=== PATIENT | female | born 1975 | race American Indian/Alaskan Native ===

== ENCOUNTER 2016-12-14 07:11 | Emergency (ER) | payer MEDICAID ==
[2016-12-14 08:06] LABS: Hematocrit 46.1 % (30.3-42.9); Hemoglobin 14.6 gm/dl (10.1-14.3); Mean Corpuscular HGB Conc 32 % (30-34); Mean Corpuscular Hemoglobin 27 pg (28-32); Mean Corpuscular Volume 85 fl (79-97); Platelet Count 213 K/mm3 (140-440); Red Blood Count 5.41 M/mm3 (3.65-5.03); Red Cell Distribution Width 15.1 % (13.2-15.2)
[2016-12-14 08:19] LABS: Anion Gap 25 mmol/L; BUN/Creatinine Ratio 21.66; Blood Urea Nitrogen 13 mg/dL (7-17); Carbon Dioxide 18 mmol/L (22-30); Chloride 97.3 mmol/L (98-107); Glucose 101 mg/dL (65-100); Sodium 136 mmol/L (137-145)
[2016-12-14 08:31] LABS: Cholesterol 189 mg/dL (50-199); HDL Cholesterol 35 mg/dL (40-59); LDL Cholesterol,Direct 121 mg/dL (50-130); Triglycerides 169 mg/dL (2-149)
[2016-12-14 09:05] LABS: Anisocytosis 1+; Basophils % (Manual) 0 % (0.0-1.8); Blastocytes % (Manual) 0 %; Diff Status Complete; Eosinophils % (Manual) 0 % (0.0-4.3)
[2016-12-14] MEDS ORDERED: TORADOL IV ONE (10:00)
[2016-12-14] MEDS ORDERED: ULTRAM PO ONE (10:00)
--- NOTE | 2016-12-14 10:35 | XRay Report ---
CHEST 2 VIEWS INDICATION: Left chest pain, shortness of breath. COMPARISON: 03/23/2015 FINDINGS: PA and lateral chest radiographs demonstrate stable cardiomediastinal silhouette/mild cardiomegaly. Poorer inspiration with increased bibasilar atelectasis. No pleural effusions or CHF. Intact bones. CONCLUSION: New bibasilar atelectasis with mild cardiomegaly again suspected, as described. Thank you for the opportunity to participate in this patient's care.
[2016-12-14] MEDS ORDERED: NACL ONE (11:55)
--- NOTE | 2016-12-14 12:51 | Cat Scan Report ---
CTA CHEST INDICATION: Elevated d-dimer/troponin, chest pain, shortness of breath. COMPARISON: 06/27/[address] images. FINDINGS: Chest CTA performed following intravenous administration of 100 cc of Omnipaque 350. Rotational MIP's also obtained. Mild to moderate cardiomegaly. Small pericardial effusion also noted with maximum thickness increased to approximately 1 cm posterior to the left ventricle, axial image 129, series 2. Borderline pulmonary arterial hypertension. No suspicious pulmonary arterial filling defects however, to the extent assessed. No aortic aneurysm or dissection. Patent central airway. Few distal right paratracheal lymph nodes may measure up to 1.2 cm as on axial image 71, series 2, nonspecific. Normal thyroid. No significant pleural effusions. Mild diffuse septal prominence/slight congestion not excluded. Bibasilar atelectasis. Nonspecific distal esophageal wall prominence/thickening, not excluded for gastroesophageal reflux and/or hiatal hernia, amongst others. No acute significant abnormality in the imaged upper abdomen. Previously seen 7 mm indeterminate hepatic dome hypodensity now not well seen. Slight mid thoracic spine degenerative spurring. CONCLUSION: 1. Increased small pericardial effusion and stable cardiomegaly, as described. 2. Mild increased bibasilar atelectasis and few other incidental findings, as above. No CT evidence of pulmonary embolism, to the extent assessed. Thank you for the opportunity to participate in this patient's care.
--- NOTE | 2016-12-14 13:46 | Emergency Department Report ---
ED Chest Pain HPI - General Chief Complaint: Chest Pain Stated Complaint: CHEST PAIN Time Seen by Provider: 12/14/16 09:42 Source: patient Mode of arrival: Ambulatory Limitations: No Limitations - History of Present Illness Initial Comments: 41 yo female with a past medical history of CHF, hypertension, and tobacco use presents to the hospital complains of chest pain 3 days. Patient states symptoms started after a forcing herself to vomit after she felt like something was stuck in her esophagus. Since then patient has had constant left upper chest pain radiating to shoulder radiate 10/10 intensity. Pain Sharp, constant, worsened with palpation and while lying on her chest wall. No alleviating factors reported. Positive associated shortness of breath due to pain. Positive dry cough without fever. Patient stopped smoking approximately 3 days ago when symptoms started because he thought symptoms might be due to tobacco use. She denies recent travel, calf tenderness, edema, history of PE/DVT. Patient does not have a primary care doctor or a camp director. Severity scale (0 -10): 8 - Related Data Home Medications Medication Instructions Recorded Confirmed Last Taken Carvedilol [Coreg] 6.25 mg PO BID 12/14/16 12/14/16 12/13/16 Lisinopril [Zestril TAB] 10 mg PO QDAY 12/14/16 12/14/16 12/13/16 Previous Rx's Medication Instructions Recorded Last Taken Type Ibuprofen [Motrin] 800 mg PO Q8HR PRN #30 tablet 12/14/16 Unknown Rx traMADol [Ultram 50 MG tab] 50 mg PO Q6HR PRN #20 tablet 12/14/16 Unknown Rx Allergies Allergy/AdvReac Type Severity Reaction Status Date / Time No Known Allergies Allergy Verified 03/14/15 08:25 Heart Score - HEART Score History: Slightly suspicious EKG: Non-specific Age: < 45 Risk factors: > 3 risk factors or hx of atherosclerotic disease Troponin: 1-3x normal limit HEART Score: 4 ED Review of Systems ROS: Stated complaint: CHEST PAIN Other details as noted in HPI Comment: All other systems reviewed and negative Other: Constitutional: No fevers chills Eyes: No eye pain visual changes ENT: No ear pain or throat pain Neck: Denies pain Respiratory: as per hpi Cardiovascular: Denies palpitations, syncope GI: Denies abdominal pain, nausea, vomiting, diarrhea : Denies dysuria Musculoskeletal: Denies back pain Skin: Denies rash, lesions, erythema Neurologic: Denies headache, numbness, weakness Psychiatric: Denies suicidal ideation, hallucinations ED Past Medical Hx - Past Medical History Hx Hypertension: Yes Hx Congestive Heart Failure: Yes - Surgical History Additional Surgical History: hysterectomy-PARTIAL - Social History Smoking Status: Former Smoker Substance Use Type: None - Medications Home Medications: Home Medications Medication Instructions Recorded Confirmed Last Taken Type Carvedilol [Coreg] 6.25 mg PO BID 12/14/16 12/14/16 12/13/16 History Ibuprofen [Motrin] 800 mg PO Q8HR PRN #30 tablet 12/14/16 Unknown Rx Lisinopril [Zestril TAB] 10 mg PO QDAY 12/14/16 12/14/16 12/13/16 History traMADol [Ultram 50 MG tab] 50 mg PO Q6HR PRN #20 tablet 12/14/16 Unknown Rx ED Physical Exam - General Limitations: No Limitations - Other Other exam information: General: No limitations, patient is alert in no acute distress Head exam: Atraumatic, normocephalic Eyes exam: Normal appearance, ENT: Moist mucous membrane, normal oropharynx Neck exam: Normal inspection, full range of motion, no meningismus nontender Respiratory exam: Clear to auscultation bilateral, no wheezes, rales, crackles Cardiovascular: Normal rate and rhythm, normal heart sounds, + reproducible chest wall tenderness left upper Abdomen: Soft, nondistended, and nontender, with normal bowel sounds, no rebound, or guarding Extremity: Full range of motion normal inspection no deformity, no calf tenderness, no edema Back: Normal Inspection, full range of motion, no tenderness Neurologic: Alert, oriented x3, cranial nerves intact, no motor or sensory deficit Psychiatric: normal affect, normal mood Skin: Warm, dry, intact ED Course Vital Signs 12/14/16 12/14/16 07:21 12:05 Temperature 99.7 F H Pulse Rate 102 H Respiratory 18 Rate Blood Pressure 140/95 O2 Sat by Pulse 98 97 Oximetry - Reevaluation(s) Reevaluation #1: 12/14/16 13:50 pain improved after tramadol and toradol - Consultations Consultation #1: 12/14/16 13:45 case d/w Harmony peterson (cardiology), states possibility of myocarditis, recommends admission for echocardiogram SATHISH score - Sathish Score Age > 65: (0) No Aspirin use within the Past 7 Days: (0) No 3 or more CAD Risk Factors: (1) Yes 2 or more Angina events in past 24 hrs: (0) No Known CAD with more than 50% Stenosis: (0) No Elevated Cardiac Markers: (0) No ST Deviation Greater than 0.5mm: (1) Yes SATHISH Score: 2 ED Medical Decision Making - Lab Data Result diagrams: 12/14/16 07:41 12/14/16 07:41 Lab Results 12/14/16 12/14/16 12/14/16 Range/Units 07:41 07:41 10:24 WBC 12.0 H (4.5-11.0) K/mm3 RBC 5.41 H (3.65-5.03) M/mm3 Hgb 14.6 H (10.1-14.3) gm/dl Hct 46.1 H (30.3-42.9) % MCV 85 (79-97) fl MCH 27 L (28-32) pg MCHC 32 (30-34) % RDW 15.1 (13.2-15.2) % Plt Count 213 (140-440) K/mm3 [place] % (Auto) Fiberglass Insulation Installer Add Manual Diff Complete Total Counted 100 Seg Neuts % (Manual) 66.0 (40.0-70.0) % Band Neutrophils % 0 % Lymphocytes % (Manual) 23.0 (13.4-35.0) % Reactive Lymphs % (Man) 0 % Monocytes % (Manual) 11.0 H (0.0-7.3) % Eosinophils % (Manual) 0 (0.0-4.3) % Basophils % (Manual) 0 (0.0-1.8) % Metamyelocytes % 0 % Myelocytes % 0 % Promyelocytes % 0 % Blast Cells % 0 % Nucleated RBC % Not Reportable Seg Neutrophils # Man 7.9 H (1.8-7.7) K/mm3 Band Neutrophils # 0.0 K/mm3 Lymphocytes # (Manual) 2.8 (1.2-5.4) K/mm3 Abs React Lymphs (Man) 0.0 K/mm3 Monocytes # (Manual) 1.3 H (0.0-0.8) K/mm3 Eosinophils # (Manual) 0.0 (0.0-0.4) K/mm3 Basophils # (Manual) 0.0 (0.0-0.1) K/mm3 Metamyelocytes # 0.0 K/mm3 Myelocytes # 0.0 K/mm3 Promyelocytes # 0.0 K/mm3 Blast Cells # 0.0 K/mm3 WBC Morphology Not Reportable Hypersegmented Neuts Not Reportable Hyposegmented Neuts Not Reportable Hypogranular Neuts Not Reportable Smudge Cells Not Reportable Toxic Granulation Not Reportable Toxic Vacuolation Not Reportable Dohle Bodies Not Reportable Pelger-Huet Anomaly Not Reportable Kobe Rods Not Reportable Platelet Estimate Appears normal Clumped Platelets Not Reportable Plt Clumps, EDTA Not Reportable Large Platelets Not Reportable Giant Platelets Not Reportable Platelet Satelliting Not Reportable Plt Morphology Comment Not Reportable RBC Morphology Not Reportable Dimorphic RBCs Not Reportable Polychromasia Not Reportable Hypochromasia Not Reportable Poikilocytosis Not Reportable Anisocytosis 1+ Microcytosis Not Reportable Macrocytosis Not Reportable Spherocytes Not Reportable Pappenheimer Bodies Not Reportable Sickle Cells Not Reportable Target Cells Not Reportable Tear Drop Cells Not Reportable Ovalocytes Not Reportable Helmet Cells Not Reportable Dennis-Hobson Bodies Not Reportable [place] Rings Not Reportable [place] Cells Not Reportable Bite Cells Not Reportable Crenated Cell Not Reportable Elliptocytes Not Reportable Acanthocytes (Spur) Not Reportable Rouleaux Not Reportable Hemoglobin C Crystals Not Reportable Schistocytes Not Reportable Malaria parasites Not Reportable Felipe Bodies Not Reportable Hem Pathologist Commnt No D-Dimer (0-234) ng/mlDDU Sodium 136 L (137-145) mmol/L Potassium 4.0 (3.6-5.0) mmol/L Chloride 97.3 L (98-107) mmol/L Carbon Dioxide 18 L (22-30) mmol/L Anion Gap 25 mmol/L BUN 13 (7-17) mg/dL Creatinine 0.6 L (0.7-1.2) mg/dL Estimated GFR > 60 ml/min BUN/Creatinine Ratio 21.66 % Glucose 101 H (65-100) mg/dL Calcium 9.0 (8.4-10.2) mg/dL Troponin T 0.058 H 0.041 H D (0.00-0.029) ng/mL Triglycerides 169 H (2-149) mg/dL Cholesterol 189 (50-199) mg/dL LDL Cholesterol Direct 121 (50-130) mg/dL HDL Cholesterol 35 L (40-59) mg/dL Cholesterol/HDL Ratio 5.40 % 12/14/16 Range/Units 10:24 WBC (4.5-11.0) K/mm3 RBC (3.65-5.03) M/mm3 Hgb (10.1-14.3) gm/dl Hct (30.3-42.9) % MCV (79-97) fl MCH (28-32) pg MCHC (30-34) % RDW (13.2-15.2) % Plt Count (140-440) K/mm3 [place] % (Auto) Add Manual Diff Total Counted Seg Neuts % (Manual) (40.0-70.0) % Band Neutrophils % % Lymphocytes % (Manual) (13.4-35.0) % Reactive Lymphs % (Man) % Monocytes % (Manual) (0.0-7.3) % Eosinophils % (Manual) (0.0-4.3) % Basophils % (Manual) (0.0-1.8) % Metamyelocytes % % Myelocytes % % Promyelocytes % % Blast Cells % % Nucleated RBC % Seg Neutrophils # Man (1.8-7.7) K/mm3 Band Neutrophils # K/mm3 Lymphocytes # (Manual) (1.2-5.4) K/mm3 Abs React Lymphs (Man) K/mm3 Monocytes # (Manual) (0.0-0.8) K/mm3 Eosinophils # (Manual) (0.0-0.4) K/mm3 Basophils # (Manual) (0.0-0.1) K/mm3 Metamyelocytes # K/mm3 Myelocytes # K/mm3 Promyelocytes # K/mm3 Blast Cells # K/mm3 WBC Morphology Hypersegmented Neuts Hyposegmented Neuts Hypogranular Neuts Smudge Cells Toxic Granulation Toxic Vacuolation Dohle Bodies Pelger-Huet Anomaly Kobe Rods Platelet Estimate Clumped Platelets Plt Clumps, EDTA Large Platelets Giant Platelets Platelet Satelliting Plt Morphology Comment RBC Morphology Dimorphic RBCs Polychromasia Hypochromasia Poikilocytosis Anisocytosis Microcytosis Macrocytosis Spherocytes Pappenheimer Bodies Sickle Cells Target Cells Tear Drop Cells Ovalocytes Helmet Cells Dennis-Hobson Bodies [place] Rings Jocelynn Cells Bite Cells Crenated Cell Elliptocytes Acanthocytes (Spur) Rouleaux Hemoglobin C Crystals Schistocytes Malaria parasites Felipe Bodies Hem Pathologist Commnt D-Dimer 628.46 H (0-234) ng/mlDDU Sodium (137-145) mmol/L Potassium (3.6-5.0) mmol/L Chloride (98-107) mmol/L Carbon Dioxide (22-30) mmol/L Anion Gap mmol/L BUN (7-17) mg/dL Creatinine (0.7-1.2) mg/dL Estimated GFR ml/min BUN/Creatinine Ratio % Glucose (65-100) mg/dL Calcium (8.4-10.2) mg/dL Troponin T (0.00-0.029) ng/mL Triglycerides (2-149) mg/dL Cholesterol (50-199) mg/dL LDL Cholesterol Direct (50-130) mg/dL HDL Cholesterol (40-59) mg/dL Cholesterol/HDL Ratio % - EKG Data -: EKG Interpreted by Me (sinus tach 102, LVH, possible ant infarct) - EKG Data When compared to previous EKG there are: changes noted (mar 2015) - Radiology Data Radiology results: report reviewed Chest x-ray: Bibasilar atelectasis with mild cardiomegaly CT angiogram chest: Increased small pericardial effusion and stable cardiomegaly , mild increased bibasilar atelectasis and a few incidental findings. - Medical Decision Making Patient has reproducible chest wall tenderness. Symptoms might be secondary to costochondritis however, patient elevated troponin with unknown cause. Possibility of viral myocarditis/viral syndrome. Cardiology recommended admission to the hospital for echocardiogram. Patient refuses admission at this time. This may risk of worsening heart function distally to significant disability and . Patient voices understanding asked repeatedly states she cannot stand hospital tonight. Patient has so erroneously documented about a size. No point I will speak to Have respiratory distress. Resting respiratory rate remained 18-20 - Differential Diagnosis costochondritis, MN, PE, unstable angina, myocarditis Critical Care Time: No Critical care attestation.: If time is entered above; I have spent that time in minutes in the direct care of this critically ill patient, excluding procedure time. ED Disposition Clinical Impression: Chest pain, Elevated troponin, HTN (hypertension), History of CHF (congestive heart failure) Disposition: OP ADMIT IP TO THIS HOSP Is pt being admited?: Yes Condition: Stable Instructions: Chest Pain (ED) Additional Instructions: You are Signing out AGAINST MEDICAL ADVICE because you have elevated cardiac enzymes. This could represent a heart attack or a heart infection. You have refuses admission for further workup and evaluation as recommended by the camp director. This can lead to significant and disability. It is very important that you follow up as soon as possible with a camp director for further evaluation. Prescriptions: Ibuprofen [Motrin] 800 mg PO Q8HR PRN #30 tablet PRN Reason: Pain traMADol [Ultram 50 MG tab] 50 mg PO Q6HR PRN #20 tablet PRN Reason: Pain Referrals: ROXANN MICHELLE MD [Staff Physician] - KEVIN (camp director) Forms: AMA Form Time of Disposition: 13:45 (Dr Greene/hosp)
--- NOTE | 2016-12-14 13:51 | Admit Criteria Form ---
Admission Criteria Documentation: CARDIOLOGY GRG Clinical Indications for Admission to Inpatient Care ([place]/check or initial the applicable condition/criteria) Hospital admission is needed for appropriate care of the patient because of ANY ONE of the following: [ ] I. Hemodynamic instability as indicated by ALL of the following (1)(2)(3) (4)(5)(6)(7)(8)(9)(10) [ ]a) Vital sign abnormality not readily corrected by appropriate treatment with 12-24 hours for ANY ONE: [ ]i) Hypotension that persists despite appropriate treatment (eg, volume repletion) [ ]ii) Tachycardiathat persists despite appropriate tx ( e.g., analgesia, fluids, sedation as indicated [ ]iii) Orthostatic vital sign changes that persists despite appropriate treatment (eg, volume repletion) [ ]b) Vital sign abnormailty that is severe indicated by ANY ONE of the following: [ ]i) Inadequate perfusion indicated by ANY ONE of the following: [ ] 1) Lactic acidosis (> 2 mmol/L) [ ] 2) New abnormal capillary refill (> 3 seconds) [ ] 3) Reduced urine output [ ] 4) New altered mental status [ ] 5) Myocardial Ischemia [ ] 6) Other metabolic acidosis (arterial pH <7.35 ) not otherwise explained. [ ]ii) Mean arterial pressure[A] less than 60 mm Hg [ ]iii) Mean arterial pressure[A] less than 70 mm Hg after 30 minutes of appropriate treatment (eg, fluid resuscitation) [ ]iv) Sustained heart rate greater than 120 beats per minute in adult or child 6 years or older[B] [ ]v) IV inotropic or vasopressor medication required to maintain adequate blood pressure or perfusion [ ] II. Severe heart failure as indicated by ANY ONE of the following(17)(18) [ ]a) Respiratory distress [ ]b) Hypotension [ ]c) Debilitating anasarca refractory to therapy (eg, tissue breakdown with infection)[C](19) [ ]d) Cardiac arrhythmias of immediate concern [ ]e) Myocardial ischemia [ ] III. Cardiac arrhythmias or findings of immediate concern indicated by ANY ONE of the following (21)(22): [ ] a) Heart rhythms that are inherently dangerous or unstable indicated by ANY ONE of the following (23)(24)(25): [ ] i) Resuscitated ventricular fibrillation or cardiac arrest [ ] ii) Ventricular escape rhythm [ ] iii) Sustained ventricular tachycardia (30 seconds or more of ventricular rhythm at greater than 100 beats per minute) [ ] iv) Nonsustained ventricular tachycardia and ANY ONE of the following: [ ] 1) Suspected cardiac ischemia as cause or consequence of ventricular tachycardia [ ] 2) Acute myocarditis [ ] b) Unstable cardiac conduction defects indicated by ANY ONE of the following(25)(26)(27) [ ] i) Type II second-degree atrioventricular block [ ]ii) Third-degree atrioventricular block [ ]iii) New-onset left bundle branch block with suspected myocardial ischemia [ ]c) Any heart rhythm and ANY ONE of the following (23)(24)(28)(29) (30) [ ] i) Continuous long-term ECG monitoring needed (e.g., initiation of drug requiring monitoring for more than 24 hours) [ ] ii) Patient has automatic implanted cardioverter defibrillator that is repeatedly firing, malfunctioning, or in need of immediate adjustment of settings beyond the scope of ambulatory or observation care [ ]d) Heart rhythms of concern due to ANY ONE of the following: [ ] i) Hypotension [ ] ii) Respiratory distress [ ] iii) Association with other significant symptoms (e.g., bradycardia with syncope or ongoing dizziness, supraventricular tachycardia with chest pain (28)(29)(31) [ ] IV. Monitoring for cardiac contusion beyond the scope of observation care needed [A](32)(33)(34) [ ] V. Surgical or device complication (e.g., valve replacement complication , ICD disfunction or pacemaker dysfunction) (49)(50)(51)(52)(53)(54) [ ] . Inpatient palliative care needed. [F](51)(52) Also use Inpatient Palliative Care Criteria [ ] VII. Nonbacterial thrombotic ([place]) endocarditis(43)(44)(55)(56)(57) [X ] VIII. Cardiology condition, symptom, or finding for which emergency and observation care has failed or are not considered appropriate. [ ] IX. Acute valvular disease requiring inpatient as indicated by ANY ONE of the following (40)(41) [ ]a) Acute valvular regurgitation (42) [ ]b) Noninfectious valvulitis (43)(44) [ ]c) Obstructive valve thrombosis (45)(46) [ ]d) Paravalvular leak(47)(48) [ ]e) Other significant valvular disorder remaining after emergency or observation level of care (as appropriate) [ ]X. Pericardial disease requiring inpatient treatment as indicated by ANY ONE of the following (35)(36)(37)(38) [ ]a) Suspected tamponade [ ]b) Hemopericardium [ ]c) Other significant pericardial disorder remaining after emergency or observation level of care (as appropriate)(39) [ ] XI. Cardiac ischemia beyond scope of emergency and observation care. [ ] XII. Cyanotic heart disease requiring inpatient care as indicated by 1 or more of the following(58)(59)(60): [ ]a) Acute onset of hypoxemia [ ]b) Exacerbation [ ] XIII. Hypertension requiring inpatient treatment as indicated by ANYONE of the following(11)(12)(13)(14): [ ]a) Severe hypertension (SBP greater than 180 mm Hg or DBP greater than 110 mm Hg, or greater than the 95th percentile for age, gender, and height in pediatric patients) that cannot be controlled (eg, to SBP less than 160 mm Hg and DBP less than 100 mm Hg) by emergency department or observation care treatment(15) [ ]b) Acute end organ damage secondary to hypertension (SBP greater than 140 mm Hg or DBP greater than 90 mm Hg) as indicated by ANYONE of the following: [ ] i) Hypertensive encephalopathy (eg, Altered mental status)(16) [ ] ii) Cerebral infarction [ ] iii) Intracranial hemorrhage [ ] iv) Myocardial ischemia or infarction [ ] v) Heart failure (eg, pulmonary edema) [ ] vi) Aortic dissection [ ] vii) Increased creatinine (new) with reduction of more than 50% in estimated glomerular filtration rate from baseline [ ] viii) Papilledema [ ] ix) Retinal hemorrhage [ ] x) Microangiopathic hemolytic anemia [ ] xi) Seizure [ ] xii) Other significant finding secondary to hypertension [ ] XIV. Complications of transplanted heart indicated by ANY ONE of the following(61): [ ]a) Acute graft rejection requiring inpatient management (eg, intravenous imunosuppression)(62)(63) [ ]b) Acute graft heart failure indicated by ANY ONE of the following(64): [ ] i) Hemodynamic instability [ ] ii) Cardiac arrhythmias of immediate concern [ ] iii) Pulmonary edema that is very severe (eg, mechanical ventilation needed, imminent or likely, need for 100% oxygen to keep oxygen saturation above 90%) [ ] iv) Pulmonary edema that is persistent as indicated by ALL of the following: [ ] 1) New need for oxygen therapy to keep oxygen saturation above 90 % (or increased FiO2 need from baseline) [ ] 2) Has not improved sufficiently with emergency department or observation care IV diuretics or other heart failure treatments[E]. [ ] iv) Altered mental status that is severe or persistent [ ] iv) Increased creatinine (new on laboratory test) with reduction of more than 50% in estimated glomerular filtration rate from baseline [ ] iv) Progressively (ongoing) rising creatinine (known from past laboratory test) with reduction of more than 25% in estimated glomerular filtration rate from baseline [ ] iv) Acute renal failure [ ] iv) Acute peripheral ischemia (eg, examination shows pulseless, cool, mottled, or cyanotic extremity) [ ] iv) Pulmonary artery catheter monitoring needed [ ] iv) Other sign or symptom of heart failure requiring inpatient treatment (ie, too severe or not responsive to outpatient and observation care treatment) [ ]c) Infection requiring inpatient management (eg, Hemodynamic instability, need for intravenous antimicrobial treatment)(66)(67)(68)(69)(70) [ ]d) Cardiac allograft vasculopathy requiring inpatient management (eg evidence of cardiacischemia)(71) [ ]e) Other complication of transplanted heart (eg, stroke, severe pulmonary hypertension, severe valvular dysfunction) requiring inpatient management(72) The original [employer] content created by [employer] has been revised. The portions of the content which have been revised are identified through the use of italic text or in bold, and [facility] has neither reviewed nor approved the modified material. All other unmodified content is copyright [employer]. Please see references footnoted in the original [employer] edition 2017
[2016-12-14 14:01] VITALS: BP 115/80
== END 2016-12-14 14:36 | disposition left against medical advice (07) ==
LOC: ED 07:11
DX: I10 Essential (primary) hypertension (principal); R07.9 Chest pain, unspecified; I50.9 Heart failure, unspecified; R79.89 Other specified abnormal findings of blood chemistry
CPT/HCPCS: 36415; 71020; 71275; 80048; 80061; 84484; 85007; 85025; 85379; 93005; 93010; 96374; 99285; J1885; Q9967

== ENCOUNTER 2017-12-01 09:58 | Emergency (ER) | payer MEDICAID ==
[2017-12-01] MEDS ORDERED: NACL 0.9% 1000 ML 1,000 ML IV ONE (11:14)
[2017-12-01 12:07] LABS: Hematocrit 43.4 % (30.3-42.9); Hemoglobin 14.1 gm/dl (10.1-14.3); Mean Corpuscular HGB Conc 32 % (30-34); Mean Corpuscular Hemoglobin 29 pg (28-32); Mean Corpuscular Volume 89 fl (79-97); Platelet Count 209 K/mm3 (140-440); Red Blood Count 4.89 M/mm3 (3.65-5.03); Red Cell Distribution Width 15.2 % (13.2-15.2)
[2017-12-01 12:37] LABS: Bilirubin,Urine NEG (Negative); Blood,Urine NEG (Negative); Color,Urine Yellow (Yellow); Mucus,Urine 2+ /HPF
[2017-12-01 12:47] LABS: Alanine Aminotransferase 13 units/L (7-56); Albumin 4.2 g/dL (3.9-5); BUN/Creatinine Ratio 15; Blood Urea Nitrogen 9 mg/dL (7-17); Hemolysis Index 4
[2017-12-01 13:07] LABS: Basophils % (Manual) 0 % (0.0-1.8); Eosinophils % (Manual) 0 % (0.0-4.3); Platelet Estimate Cons; RBC Morphology Normal; Total Cells Counted 100
--- NOTE | 2017-12-01 16:33 | Emergency Department Report ---
ED Abdominal Pain HPI - General Chief Complaint: Abdominal Pain Stated Complaint: STOMACH PAIN/URINE BURN Time Seen by Provider: 12/01/17 16:33 Source: patient Mode of arrival: Ambulatory Limitations: No Limitations - History of Present Illness Initial Comments: Patient have not taken her blood pressure medication. MD Complaint: abdominal pain -: Sudden Location: suprapubic Radiation: back Migration to: no migration Severity: moderate Severity scale (0 -10): 5 Quality: cramping, aching, dull Consistency: intermittent Improves With: nothing Worsens With: nothing Associated Symptoms: dysuria. denies: nausea, vomiting, diarrhea, fever, constipation, hematemesis, hematochezia, hematuria - Related Data Home Medications Medication Instructions Recorded Confirmed Last Taken Carvedilol [Coreg] 6.25 mg PO BID 12/14/16 12/14/16 12/13/16 Lisinopril [Zestril TAB] 10 mg PO QDAY 12/14/16 12/14/16 12/13/16 Previous Rx's Medication Instructions Recorded Last Taken Type Ibuprofen [Motrin] 800 mg PO Q8HR PRN #30 tablet 12/14/16 Unknown Rx traMADol [Ultram 50 MG tab] 50 mg PO Q6HR PRN #20 tablet 12/14/16 Unknown Rx Ibuprofen [Motrin] 800 mg PO Q8HR PRN #20 tablet 12/01/17 Unknown Rx Ondansetron [Zofran Odt] 4 mg PO Q8HR PRN #20 tab.rapdis 12/01/17 Unknown Rx cephALEXin [Keflex] 500 mg PO Q8HR #30 cap 12/01/17 Unknown Rx Allergies Allergy/AdvReac Type Severity Reaction Status Date / Time No Known Allergies Allergy Verified 03/14/15 08:25 ED Review of Systems ROS: Stated complaint: STOMACH PAIN/URINE BURN Other details as noted in HPI Comment: All other systems reviewed and negative Constitutional: denies: chills, fever Eyes: denies: eye pain, eye discharge ENT: denies: ear pain, throat pain Respiratory: denies: cough, shortness of breath Cardiovascular: denies: chest pain, palpitations Endocrine: no symptoms reported Gastrointestinal: abdominal pain. denies: nausea, vomiting, diarrhea, constipation, hematemesis, melena, hematochezia Genitourinary: urgency, dysuria, frequency Musculoskeletal: back pain Skin: denies: rash, lesions, change in color Neurological: denies: headache, weakness Psychiatric: denies: anxiety, depression Hematological/Lymphatic: denies: easy bleeding, easy bruising ED Past Medical Hx - Past Medical History Previous Medical History?: Yes Hx Hypertension: Yes Hx Congestive Heart Failure: Yes - Surgical History Past Surgical History?: Yes Additional Surgical History: hysterectomy-PARTIAL, 2002 - Social History Smoking Status: Never Smoker Substance Use Type: None - Medications Home Medications: Home Medications Medication Instructions Recorded Confirmed Last Taken Type Carvedilol [Coreg] 6.25 mg PO BID 12/14/16 12/14/16 12/13/16 History Ibuprofen [Motrin] 800 mg PO Q8HR PRN #30 tablet 12/14/16 Unknown Rx Lisinopril [Zestril TAB] 10 mg PO QDAY 12/14/16 12/14/16 12/13/16 History traMADol [Ultram 50 MG tab] 50 mg PO Q6HR PRN #20 tablet 12/14/16 Unknown Rx Ibuprofen [Motrin] 800 mg PO Q8HR PRN #20 tablet 12/01/17 Unknown Rx Ondansetron [Zofran Odt] 4 mg PO Q8HR PRN #20 tab.rapdis 12/01/17 Unknown Rx cephALEXin [Keflex] 500 mg PO Q8HR #30 cap 12/01/17 Unknown Rx ED Physical Exam - General Limitations: No Limitations General appearance: alert, in no apparent distress - Head Head exam: Present: atraumatic, normocephalic, normal inspection - Eye Eye exam: Present: normal appearance, PERRL, EOMI Pupils: Present: normal accommodation - ENT ENT exam: Present: normal exam, normal orophraynx, mucous membranes moist - Neck Neck exam: Present: normal inspection, full ROM. Absent: tenderness - Respiratory Respiratory exam: Present: normal lung sounds bilaterally. Absent: respiratory distress, wheezes, rales, rhonchi, stridor - Cardiovascular Cardiovascular Exam: Present: regular rate, normal rhythm, normal heart sounds - GI/Abdominal GI/Abdominal exam: Present: soft, tenderness (Suprapubic area), normal bowel sounds. Absent: distended, guarding, rebound, rigid - Extremities Exam Extremities exam: Present: normal inspection, full ROM, normal capillary refill. Absent: tenderness - Back Exam Back exam: Present: normal inspection, full ROM. Absent: tenderness, CVA tenderness (R), CVA tenderness (L), paraspinal tenderness, vertebral tenderness - Neurological Exam Neurological exam: Present: alert, oriented X3, CN II-XII intact - Psychiatric Psychiatric exam: Present: normal affect, normal mood - Skin Skin exam: Present: warm, dry, intact, normal color. Absent: rash ED Course Vital Signs 12/01/17 12/01/17 12/01/17 11:05 14:51 15:20 Temperature 98.5 F Pulse Rate 71 77 74 Respiratory 16 18 18 Rate Blood Pressure 189/110 Blood Pressure 176/94 164/99 [Right] O2 Sat by Pulse 98 98 97 Oximetry 12/01/17 12/01/17 12/01/17 17:30 18:16 19:41 Temperature 98.2 F Pulse Rate 63 64 74 Respiratory 18 18 18 Rate Blood Pressure Blood Pressure 192/112 172/95 155/92 [Right] O2 Sat by Pulse 98 98 99 Oximetry - Reevaluation(s) Reevaluation #1: 12/01/17 20:29 On reevaluation, patient said her abdominal pain has resolved. I palpated her abdomen and her abdomen is soft and nontender to palpation in all quadrants. Patient wants to be discharged from the ED and she doesn't want to stay in the hospital. I advised her to return to the emergency room if her abdominal pain returns. She agreed with the recommendation and said that she will come back to the emergency room if she started having abdominal pain again. Patient is currently pain-free. She will be discharged from the emergency room in a stable medical condition. ED Medical Decision Making - Lab Data Result diagrams: 12/01/17 11:40 12/01/17 11:40 - Radiology Data Radiology results: report reviewed, image reviewed - Medical Decision Making Lower abdominal pain. UTI. Hypertension. Critical care attestation.: If time is entered above; I have spent that time in minutes in the direct care of this critically ill patient, excluding procedure time. ED Disposition Clinical Impression: UTI (urinary tract infection) Qualifiers: Urinary tract infection type: acute cystitis Hematuria presence: without hematuria Qualified Code(s): N30.00 - Acute cystitis without hematuria Hypertension Qualifiers: Hypertension type: essential hypertension Qualified Code(s): I10 - Essential ( primary) hypertension Abdominal pain Qualifiers: Abdominal location: lower abdomen, unspecified Qualified Code(s): R10.30 - Lower abdominal pain, unspecified Disposition: TO HOME OR SELFCARE Is pt being admited?: No Does the pt Need Aspirin: No Condition: Stable Instructions: Urinary Tract Infection in Women (ED), Abdominal Pain (ED), Hypertension (ED) Additional Instructions: Please follow up with your primary care doctor or Dr Collins tomorrow morning. Return to the ED if your condition worsens. Prescriptions: cephALEXin [Keflex] 500 mg PO Q8HR #30 cap Ibuprofen [Motrin] 800 mg PO Q8HR PRN #20 tablet PRN Reason: pain Ondansetron [Zofran Odt] 4 mg PO Q8HR PRN #20 tab.rapdis PRN Reason: Nausea And Vomiting Referrals: PRIMARY CAREMD [Primary Care Provider] - 3-5 Days BRAYAN COLLINS MD [Staff Physician] - 3-5 Days Time of Disposition: 20:34
[2017-12-01] MEDS ORDERED: ROCEPHIN/NS 1 GM/50 ML 1 GM/50 ML BAG IV ONE (16:58)
[2017-12-01] MEDS ORDERED: CATAPRES PO ONE (17:00)
[2017-12-01] MEDS ORDERED: ZOFRAN IV ONE (17:00)
[2017-12-01] MEDS ORDERED: MORPHINE IV ONE (17:00)
[2017-12-01] MEDS ORDERED: NACL 0.9% 1000 ML 1,000 ML ONE (17:15)
--- NOTE | 2017-12-01 19:17 | Cat Scan Report ---
FINAL REPORT PROCEDURE: CT ABDOMEN PELVIS W CON TECHNIQUE: Computerized axial tomography of the abdomen and pelvis was performed after the IV injection of iodinated nonionic contrast. HISTORY: Lower abdominal Pain. COMPARISON: No prior studies are available for comparison. FINDINGS: Visualized lower thorax: Bibasilar ground-glass opacities. Liver: Normal size and attenuation. Spleen: Punctate splenic granulomas. Mild heterogeneity about superior spleen. Gallbladder and biliary system: Normal. Pancreas: Normal. Adrenals: Normal. Kidneys: Bilateral low-attenuation renal lesions, one of the largest in the left midpole measures 17 mm. Mild scarring about the left upper/mid pole. GI tract: Distension of the proximal duodenum. Scattered nondistended fluid-filled loops of ileum without transition point. The appendix measures 6-7 mm, air-filled and without surrounding inflammation. Stool throughout the colon. Colonic diverticula, some of them appear enlarged, the largest measuring 17 mm. Lymph nodes and mesentery: Scattered mildly enlarged lymph nodes, most evident in the right mid abdomen. Largest one on the right about common iliac artery measures 17 by 12 mm (image 105 series 2, image 60 series 602.. Subcentimeter retroperitoneal lymph nodes. Vasculature: Mild atherosclerosis. Bladder: Normal. Reproductive organs: Normal. Peritoneum: No free fluid. Musculoskeletal structures: L4-5 disc bulge with vacuum discs change in disc space narrowing. Slight L5-S1 disc bulge. Tiny multilevel osteophytes.. Other: None. IMPRESSION: Bibasilar ground-glass opacities likely atelectasis. Mild heterogeneity about the superior spleen. Could represent volume averaging. Also consider process such as splenic infarction, or even posttraumatic change. Consider correlation with clinical history. Low-attenuation renal lesions, likely cysts. Distension of the duodenum and scattered nondistended fluid-filled loops of ileum felt to more likely represent ileus rather than obstruction. Colonic diverticulosis. Appendix measures 6-7 mm top-normal. Air-filled without surrounding inflammation. There is overlap in the imaging appearance of normal and abnormal appendix. Recommend clinical correlation and further evaluation including CT scan with oral contrast if there is concern for appendiceal pathology such as subtle appendicitis. Scattered mesenteric and retroperitoneal lymph nodes, mildly enlarged most evident in the right mid abdomen. Consider could be reactive, consider attention on followup exam if there is concern for underlying myeloproliferative process.
[2017-12-01 19:42] VITALS: BP 155/92
== END 2017-12-01 20:55 | disposition home or self-care (01) ==
LOC: ED 09:58
DX: N30.00 Acute cystitis without hematuria (principal); I11.0 Hypertensive heart disease with heart failure; I50.9 Heart failure, unspecified; Z90.710 Acquired absence of both cervix and uterus
CPT/HCPCS: 36415; 74177; 80053; 81001; 85007; 85025; 87086; 96365; 96375; 99285; J0696; J2270; J2405; J7030; Q9967

== ENCOUNTER 2018-04-21 02:18 | Emergency (ER) | payer MEDICAID ==
[2018-04-21] MEDS ORDERED: CATAPRES PO ONE (02:40)
--- NOTE | 2018-04-21 03:02 | XRay Report ---
FINAL REPORT PROCEDURE: XR CHEST ROUTINE 2V TECHNIQUE: PA and lateral chest radiographs were obtained. CPT 78861 HISTORY: sob COMPARISON: No prior studies are available for comparison. FINDINGS: Heart: Normal. Mediastinum/Vessels: Normal. Lungs/Pleural space: Normal. Bony thorax: No acute osseous abnormality. Other: IMPRESSION: There is no evidence of an acute cardiopulmonary process.
[2018-04-21 03:04] LABS: Basophils # (Auto) 0.1 K/mm3 (0.0-0.1); Basophils % (Auto) 0.8 % (0.0-1.8); Eosinophils # (Auto) 0.4 K/mm3 (0.0-0.4); Eosinophils % (Auto) 4.4 % (0.0-4.3); Hematocrit 41.9 % (30.3-42.9); Hemoglobin 13.8 gm/dl (10.1-14.3); Lymphocytes # (Auto) 4.1 K/mm3 (1.2-5.4); Lymphocytes % (Auto) 46.3 % (13.4-35.0); Mean Corpuscular HGB Conc 33 % (30-34); Mean Corpuscular Volume 88 fl (79-97); Monocytes # (Auto) 0.7 K/mm3 (0.0-0.8); Monocytes % (Auto) 7.8 % (0.0-7.3); Platelet Count 201 K/mm3 (140-440); Red Blood Count 4.75 M/mm3 (3.65-5.03); Red Cell Distribution Width 14.8 % (13.2-15.2)
[2018-04-21 03:13] LABS: BUN/Creatinine Ratio 21; Blood Urea Nitrogen 17 mg/dL (7-17); Calcium 8.7 mg/dL (8.4-10.2); Hemolysis Index 31
[2018-04-21] MEDS ORDERED: NORVASC PO ONE (06:49)
--- NOTE | 2018-04-21 07:03 | Emergency Department Report ---
ED General Adult HPI - General Chief complaint: Dyspnea/Respdistress Stated complaint: SUDHA Time Seen by Provider: 04/21/18 06:16 Source: patient Mode of arrival: Ambulatory Limitations: No Limitations - History of Present Illness Initial comments: 44 year old female states that she has periodic shortness of breath in the middle of the night. This has been going on for years. She states that she had a "recall of her blood pressure medicine"which starts with a "V". I could not recognize her name. Patient denied that it was Valsartan. She is still taking hydrochlorothiazide which she says is a heart medication. Later she requested pain pills for periodic headaches. She is not complaining of headaches now. She states that she does have a primary care physician but she has not seen them for years. She denies any mental health disorder or anxiety. She is not coughing. She does not complain of chest pain pressure or tightness. She denies leg pain or swelling. -: month(s), year(s) Location: head Improves with: none Worsens with: none Associated Symptoms: shortness of breath (no current shortness of breath resting comfortably supine) Treatments Prior to Arrival: none - Related Data Home Medications Medication Instructions Recorded Confirmed Last Taken Carvedilol [Coreg] 6.25 mg PO BID 12/14/16 12/14/16 12/13/16 Lisinopril [Zestril TAB] 10 mg PO QDAY 12/14/16 12/14/16 12/13/16 Previous Rx's Medication Instructions Recorded Last Taken Type Ibuprofen [Motrin] 800 mg PO Q8HR PRN #30 tablet 12/14/16 Unknown Rx Ibuprofen [Motrin] 800 mg PO Q8HR PRN #20 tablet 12/01/17 Unknown Rx Ondansetron [Zofran Odt] 4 mg PO Q8HR PRN #20 tab.rapdis 12/01/17 Unknown Rx cephALEXin [Keflex] 500 mg PO Q8HR #30 cap 12/01/17 Unknown Rx amLODIPine [Norvasc] 5 mg PO ONCE #30 tablet 04/21/18 Unknown Rx metFORMIN [Glucophage] 500 mg PO BID #60 tablet 04/21/18 Unknown Rx traMADol [Ultram 50 MG tab] 50 mg PO Q6HR PRN #10 tablet 04/21/18 Unknown Rx Allergies Allergy/AdvReac Type Severity Reaction Status Date / Time No Known Allergies Allergy Verified 03/14/15 08:25 ED Review of Systems ROS: Stated complaint: SUDHA Other details as noted in HPI Constitutional: denies: chills, fever Eyes: denies: eye pain, eye discharge, vision change ENT: denies: ear pain, throat pain Respiratory: shortness of breath, SOB at rest (states nocturnally only). denies: cough, wheezing Cardiovascular: denies: chest pain, palpitations Endocrine: no symptoms reported Gastrointestinal: denies: abdominal pain, nausea, diarrhea Genitourinary: denies: urgency, dysuria, discharge Musculoskeletal: denies: back pain, joint swelling, arthralgia Skin: denies: rash, lesions Neurological: headache (intermittent not current). denies: weakness, paresthesias Psychiatric: denies: anxiety, depression Hematological/Lymphatic: denies: easy bleeding, easy bruising ED Past Medical Hx - Past Medical History Previous Medical History?: Yes Hx Hypertension: Yes Hx Congestive Heart Failure: Yes - Surgical History Past Surgical History?: Yes Additional Surgical History: hysterectomy-PARTIAL, 2002 - Social History Smoking Status: Never Smoker Substance Use Type: None - Medications Home Medications: Home Medications Medication Instructions Recorded Confirmed Last Taken Type Carvedilol [Coreg] 6.25 mg PO BID 12/14/16 12/14/16 12/13/16 History Ibuprofen [Motrin] 800 mg PO Q8HR PRN #30 tablet 12/14/16 Unknown Rx Lisinopril [Zestril TAB] 10 mg PO QDAY 12/14/16 12/14/16 12/13/16 History Ibuprofen [Motrin] 800 mg PO Q8HR PRN #20 tablet 12/01/17 Unknown Rx Ondansetron [Zofran Odt] 4 mg PO Q8HR PRN #20 tab.rapdis 12/01/17 Unknown Rx cephALEXin [Keflex] 500 mg PO Q8HR #30 cap 12/01/17 Unknown Rx amLODIPine [Norvasc] 5 mg PO ONCE #30 tablet 04/21/18 Unknown Rx metFORMIN [Glucophage] 500 mg PO BID #60 tablet 04/21/18 Unknown Rx traMADol [Ultram 50 MG tab] 50 mg PO Q6HR PRN #10 tablet 04/21/18 Unknown Rx ED Physical Exam - General Limitations: No Limitations General appearance: alert, in no apparent distress - Head Head exam: Present: atraumatic, normocephalic - Eye Eye exam: Present: normal appearance, PERRL, EOMI. Absent: scleral icterus - ENT ENT exam: Present: mucous membranes moist - Neck Neck exam: Present: normal inspection. Absent: tenderness, meningismus - Respiratory Respiratory exam: Present: normal lung sounds bilaterally. Absent: respiratory distress - Cardiovascular Cardiovascular Exam: Present: regular rate, normal rhythm. Absent: systolic murmur, diastolic murmur, rubs, gallop - GI/Abdominal GI/Abdominal exam: Present: soft, normal bowel sounds. Absent: distended, tenderness, guarding, rebound, rigid - Extremities Exam Extremities exam: Present: normal inspection, full ROM, normal capillary refill. Absent: tenderness, pedal edema, joint swelling, calf tenderness - Back Exam Back exam: Present: normal inspection - Neurological Exam Neurological exam: Present: alert, oriented X3, CN II-XII intact. Absent: motor sensory deficit - Psychiatric Psychiatric exam: Present: normal mood, flat affect - Skin Skin exam: Present: warm, dry, intact, normal color. Absent: rash ED Course Vital Signs 04/21/18 02:28 Temperature 98 F Pulse Rate 99 H Respiratory 20 Rate Blood Pressure 173/114 O2 Sat by Pulse 99 Oximetry - Reevaluation(s) Reevaluation #1: Patient was restarted on antihypertensive and given an oral potassium. She is appropriate for outpatient follow-up. 04/21/18 07:05 ED Medical Decision Making - Lab Data Result diagrams: 04/21/18 02:40 04/21/18 02:40 Laboratory Results - last 24 hr 04/21/18 04/21/18 04/21/18 02:40 02:40 02:40 WBC 8.9 RBC 4.75 Hgb 13.8 Hct 41.9 MCV 88 MCH 29 MCHC 33 RDW 14.8 Plt Count 201 Lymph % (Auto) 46.3 H Coos % (Auto) 7.8 H Eos % (Auto) 4.4 H Baso % (Auto) 0.8 Lymph # 4.1 Coos # 0.7 Eos # 0.4 Baso # 0.1 Seg Neutrophils % 40.7 Seg Neutrophils # 3.6 Sodium 136 L Potassium 4.1 Chloride 102.8 Carbon Dioxide 23 Anion Gap 14 BUN 17 Creatinine 0.8 Estimated GFR > 60 BUN/Creatinine Ratio 21 Glucose 190 H Calcium 8.7 NT-Pro-B Natriuret Pep 25.08 - EKG Data EKG shows normal: sinus rhythm, axis (left axis deviation), intervals, QRS complexes, ST-T waves Rate: normal - EKG Data Interpretation: no acute changes - Radiology Data Radiology results: report reviewed (no acute process) Critical care attestation.: If time is entered above; I have spent that time in minutes in the direct care of this critically ill patient, excluding procedure time. ED Disposition Clinical Impression: Essential hypertension Type 2 diabetes mellitus Qualifiers: Diabetes mellitus nursing home insulin use: without nursing home use Diabetes melli tus complication status: without complication Qualified Code(s): E11.9 - Type 2 diabetes mellitus without complications Disposition: DC- TO HOME OR SELFCARE Is pt being admited?: No Does the pt Need Aspirin: No Condition: Stable Instructions: Hypertension (ED), Diabetes Mellitus Type 2 in Adults (ED) Additional Instructions: Sugar is elevated. He appeared to have type 2 diabetes. Medication is recommended. I have written a prescription for such as well as urine blood pressure medicine. Medicine for headache if needed. Further medical care and follow-up is indicated. Prescriptions: amLODIPine [Norvasc] 5 mg PO ONCE #30 tablet metFORMIN [Glucophage] 500 mg PO BID #60 tablet traMADol [Ultram 50 MG tab] 50 mg PO Q6HR PRN #10 tablet PRN Reason: Pain Referrals: PRIMARY CARE, [Primary Care Provider] - 3-5 Days [facility] [Provider Group] - 3-5 Days Time of Disposition: 07:07
[2018-04-21 07:57] VITALS: BP 133/84
== END 2018-04-21 07:57 | disposition home or self-care (01) ==
LOC: ED 02:18
DX: E11.9 Type 2 diabetes mellitus without complications (principal); I11.0 Hypertensive heart disease with heart failure; I50.9 Heart failure, unspecified; Z90.710 Acquired absence of both cervix and uterus
CPT/HCPCS: 36415; 71046; 80048; 83880; 85025; 93005; 93010; 99284

== ENCOUNTER 2018-05-21 11:11 | Outpatient (CLI) | payer MEDICAID ==
--- NOTE | 2018-05-21 13:57 | Mammography Report ---
BILATERAL MAMMOGRAM: FINDINGS: Baseline mammogram. The breast tissue is extremely dense (>75% glandular). This may lower the sensitivity of mammography. No mass, distortion, suspicious calcification, or skin change is seen. CAD was utilized. IMPRESSION: Negative mammogram. There is no mammographic evidence of malignancy. RECOMMENDATION: Follow-up per ACS guidelines. BI-RADS CATEGORY: 1 = Negative ACR BI-RADS MAMMOGRAPHIC CODES: 0 = Needs additional imaging evaluation; 1 = Negative; 2 = Benign; 3 = Probably benign; 4 = Suspicious; 5 = Malignant; 6 = Known biopsy-proven malignancy COMMENT: 1. Dense breast tissue, i.e., adenosis, fibrocystic changes, etc., may obscure an underlying neoplasm. 2. Approximately 10% of cancers are not detected with mammography. 3. A negative mammography report should not delay biopsy if a clinically suspicious mass is present. COMMENT: Patient follow-up letters are generated in [employer].
== END 2018-05-21 11:12 | disposition home or self-care (01) ==
LOC: MAMMO 11:11
PROVIDERS: ATTEND Hospitalist
DX: Z12.31 Encounter for screening mammogram for malignant neoplasm of breast (principal); I11.0 Hypertensive heart disease with heart failure; I50.9 Heart failure, unspecified; Z90.710 Acquired absence of both cervix and uterus
CPT/HCPCS: 77067

== ENCOUNTER 2018-09-03 14:09 | Emergency (ER) | payer MEDICAID ==
--- NOTE | 2018-09-03 14:28 | Emergency Department Report ---
Blank Doc - Documentation Documentation: This is a 43-year-old female that presents with chest pain with radiation to b ack. Denies any SOB. This initial assessment/diagnostic orders/clinical plan/treatment(s) is/are subject to change based on patient's health status, clinical progression and re- assessment by fellow clinical providers in the ED. Further treatment and workup at subsequent clinical providers discretion. Patient/guardians urged not to elope from the ED as their condition may be serious if not clinically assessed and managed. Initial orders include: 1- Patient sent to [facility] for further evaluation and treatment 2- labs 3- EKG 4- CXR
[2018-09-03 14:30] VITALS: BP 191/100
== END 2018-09-03 18:30 | disposition left against medical advice (07) ==
LOC: ED 14:09
DX: I10 Essential (primary) hypertension (principal); M54.9 Dorsalgia, unspecified; Z53.21 Procedure and treatment not carried out due to patient leaving prior to being seen by health care provider
CPT/HCPCS: 93005; 93010

== ENCOUNTER 2018-09-06 08:58 | Emergency (ER) | payer MEDICAID ==
[2018-09-06] MEDS ORDERED: CATAPRES ONE (09:39)
--- NOTE | 2018-09-06 09:41 | Emergency Department Report ---
ED General Adult HPI - General Chief complaint: Headache Stated complaint: (L) LEG PAIN/HEADACHE EXTREME Time Seen by Provider: 09/06/18 09:31 Source: patient Mode of arrival: Ambulatory Limitations: No Limitations - History of Present Illness Initial comments: Patient is 43 years old female with history of hypertension, diabetes and congestive heart failure. Patient presented to the ER complaining of headache and generalized body pain for the last few days. Patient found to have a blood pressure of 178/112. Patient stated that she take her medicine but taken at night. She denied any chest pain, shortness of breath, weakness numbness or tingling sensation. - Related Data Home Medications Medication Instructions Recorded Confirmed Last Taken Carvedilol [Coreg] 6.25 mg PO BID 12/14/16 12/14/16 12/13/16 Lisinopril [Zestril TAB] 10 mg PO QDAY 12/14/16 12/14/16 12/13/16 Previous Rx's Medication Instructions Recorded Last Taken Type Ibuprofen [Motrin] 800 mg PO Q8HR PRN #30 tablet 12/14/16 Unknown Rx Ibuprofen [Motrin] 800 mg PO Q8HR PRN #20 tablet 12/01/17 Unknown Rx Ondansetron [Zofran Odt] 4 mg PO Q8HR PRN #20 tab.rapdis 12/01/17 Unknown Rx cephALEXin [Keflex] 500 mg PO Q8HR #30 cap 12/01/17 Unknown Rx amLODIPine [Norvasc] 5 mg PO ONCE #30 tablet 04/21/18 Unknown Rx metFORMIN [Glucophage] 500 mg PO BID #60 tablet 04/21/18 Unknown Rx traMADol [Ultram 50 MG tab] 50 mg PO Q6HR PRN #10 tablet 04/21/18 Unknown Rx Allergies Allergy/AdvReac Type Severity Reaction Status Date / Time No Known Allergies Allergy Verified 03/14/15 08:25 ED Review of Systems ROS: Stated complaint: (L) LEG PAIN/HEADACHE EXTREME Other details as noted in HPI Comment: All other systems reviewed and negative Constitutional: denies: chills, fever Respiratory: denies: cough, orthopnea, shortness of breath, SOB with exertion, SOB at rest, wheezing Cardiovascular: denies: chest pain, palpitations Gastrointestinal: denies: abdominal pain, nausea, vomiting, diarrhea, constipation, hematemesis, melena, other Musculoskeletal: denies: back pain Neurological: headache. denies: weakness, numbness, paresthesias, confusion, abnormal gait ED Past Medical Hx - Past Medical History Previous Medical History?: Yes Hx Hypertension: Yes Hx Congestive Heart Failure: Yes Hx Diabetes: Yes - Surgical History Past Surgical History?: Yes Additional Surgical History: hysterectomy-PARTIAL, 2002 - Social History Smoking Status: Former Smoker - Medications Home Medications: Home Medications Medication Instructions Recorded Confirmed Last Taken Type Carvedilol [Coreg] 6.25 mg PO BID 12/14/16 12/14/16 12/13/16 History Ibuprofen [Motrin] 800 mg PO Q8HR PRN #30 tablet 12/14/16 Unknown Rx Lisinopril [Zestril TAB] 10 mg PO QDAY 12/14/16 12/14/16 12/13/16 History Ibuprofen [Motrin] 800 mg PO Q8HR PRN #20 tablet 12/01/17 Unknown Rx Ondansetron [Zofran Odt] 4 mg PO Q8HR PRN #20 tab.rapdis 12/01/17 Unknown Rx cephALEXin [Keflex] 500 mg PO Q8HR #30 cap 12/01/17 Unknown Rx amLODIPine [Norvasc] 5 mg PO ONCE #30 tablet 04/21/18 Unknown Rx metFORMIN [Glucophage] 500 mg PO BID #60 tablet 04/21/18 Unknown Rx traMADol [Ultram 50 MG tab] 50 mg PO Q6HR PRN #10 tablet 04/21/18 Unknown Rx ED Physical Exam - General Limitations: No Limitations General appearance: alert, in no apparent distress - Head Head exam: Present: atraumatic, normocephalic, normal inspection - Eye Eye exam: Present: normal appearance - ENT ENT exam: Present: normal exam, normal orophraynx, mucous membranes moist - Neck Neck exam: Present: normal inspection, full ROM. Absent: tenderness, meningismus, lymphadenopathy, thyromegaly - Respiratory Respiratory exam: Present: normal lung sounds bilaterally - Cardiovascular Cardiovascular Exam: Present: regular rate, normal rhythm, normal heart sounds - GI/Abdominal GI/Abdominal exam: Present: soft, normal bowel sounds. Absent: distended, tenderness, guarding, rebound, rigid, organomegaly, mass, bruit, pulsatile mass, hernia - Extremities Exam Extremities exam: Present: normal inspection, full ROM, normal capillary refill. Absent: pedal edema, calf tenderness - Back Exam Back exam: Present: normal inspection, full ROM. Absent: CVA tenderness (R), CVA tenderness (L), muscle spasm, paraspinal tenderness, vertebral tenderness - Neurological Exam Neurological exam: Present: alert, oriented X3, CN II-XII intact, normal gait, reflexes normal - Skin Skin exam: Present: warm, intact, normal color ED Course Vital Signs 09/06/18 09/06/18 09/06/18 09:08 09:52 10:48 Temperature 98.5 F Pulse Rate 95 H 93 H 89 Respiratory 16 16 20 Rate Blood Pressure 178/112 177/116 Blood Pressure 132/87 [Left] O2 Sat by Pulse 99 100 Oximetry Critical care attestation.: If time is entered above; I have spent that time in minutes in the direct care of this critically ill patient, excluding procedure time. ED Disposition Clinical Impression: Headache, Malignant hypertension Disposition: -01 TO HOME OR SELFCARE Is pt being admited?: No Condition: Stable Instructions: Hypertension (ED), Acute Headache (ED) Referrals: NUBIA FLORES MD [Primary Care Provider] - 3-5 Days
[2018-09-06] MEDS ORDERED: CATAPRES PO ONE (09:51)
[2018-09-06 10:49] VITALS: BP 132/87
== END 2018-09-06 11:05 | disposition home or self-care (01) ==
LOC: ED 08:58
DX: I11.0 Hypertensive heart disease with heart failure (principal); I50.9 Heart failure, unspecified; E11.9 Type 2 diabetes mellitus without complications; Z90.710 Acquired absence of both cervix and uterus; Z87.891 Personal history of nicotine dependence
CPT/HCPCS: 99282

== ENCOUNTER 2019-06-13 15:30 | Emergency (ER) | payer OTHER, MEDICAID ==
[2019-06-13 15:46] VITALS: BP 201/121
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
[2019-06-13] MEDS ORDERED: CYCLOBENZAPRINE 10 MG TAB PO ONE (16:17)
[2019-06-13] MEDS ORDERED: IBUPROFEN 800 MG TAB PO ONE (16:17)
[2019-06-13] MEDS ORDERED: HYDROcodone/ACETAMINOPHEN 5-325 MG TAB PO ONE (16:17)
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
--- NOTE | 2019-06-13 16:26 | XRay Report ---
LUMBAR SPINE 2 VIEWS INDICATION: Low back pain. COMPARISON: No relevant prior imaging study available. FINDINGS: VERTEBRAE: No acute fracture. Normal alignment. DISC SPACES: Mild discogenic degenerative changes are seen at L4 and L5. FACET JOINTS: No significant abnormality. SOFT TISSUES: No significant abnormality. ADDITIONAL FINDINGS: No additional significant findings. IMPRESSION: 1. No acute findings. 2. Mild lumbar spondylosis. Signer Name: Mo Grigsby MD Signed: 06/13/2019 4:22 PM Workstation Name: [id number]
== END 2019-06-13 16:35 | disposition home or self-care (01) ==
LOC: ED 15:30
DX: M79.18 Myalgia, other site (principal); M54.9 Dorsalgia, unspecified; I11.0 Hypertensive heart disease with heart failure; I50.9 Heart failure, unspecified; E11.9 Type 2 diabetes mellitus without complications; F17.200 Nicotine dependence, unspecified, uncomplicated; V49.59XA Passenger injured in collision with other motor vehicles in traffic accident, initial encounter; Y93.89 Activity, other specified; Y92.89 Other specified places as the place of occurrence of the external cause; Y99.8 Other external cause status
CPT/HCPCS: 72100; 99283

== ENCOUNTER 2021-04-21 11:13 | Emergency (ER) | payer MEDICAID | END 2021-04-21 11:48 | disposition left against medical advice (07) | LOC: ED 11:13 | DX: R07.9 Chest pain, unspecified (principal); Z53.21 Procedure and treatment not carried out due to patient leaving prior to being seen by health care provider ==

== ENCOUNTER 2021-12-31 11:07 | Outpatient (CLI) | payer MEDICAID ==
--- NOTE | 2021-12-31 18:13 | Mammography Report ---
DIGITAL SCREENING MAMMOGRAM WITH CAD, 12/31/2021 CLINICAL INFORMATION / INDICATION: Routine screening mammography. SCREENING MAMMOGRAM Z12.31 TECHNIQUE: Digital bilateral 2D mammography was obtained in the craniocaudal and mediolateral obliqu e projections. This examination was interpreted with the benefit of Computer-Aided Detection analysis . COMPARISON: Prior mammogram 05/21/2018 FINDINGS: Breast Density: The breasts are heterogeneously dense, which may obscure small masses. No dominant mass, suspicious calcifications, or architectural distortion in either breast. However, there are multiple prominent right axillary lymph nodes which appear increased compared with prior mammogram. IMPRESSION: 1. Multiple mildly prominent right axillary lymph nodes require further evaluation with targeted ultr asound. Follow up recommendation: Ultrasound BI-RADS Category 0: INCOMPLETE. Needs additional imaging evaluation and/or prior mammograms for michael joe. A "normal" or negative report should not discourage follow up or biopsy of a clinically significant f inding. A written summary of these findings will be mailed to the patient. The patient will be entered into a mammography reporting system which will generate a reminder letter for the patient's next appointmen t at the appropriate interval. The [employer] recommends yearly mammograms starting at age 40 and continuing as l adriano as a woman is in good health. Breast MRI is recommended for women with an approximate 20-25% or greater lifetime risk of breast cancer, including women with a strong family history of breast or ova danae cancer or who have been treated for Hodgkin's disease. Signer Name: Gina Saez MD Signed: 12/31/2021 6:09 PM Workstation Name: [id number]
== END 2021-12-31 11:08 | disposition home or self-care (01) ==
LOC: MAMMO 11:07
PROVIDERS: ATTEND Hospitalist
DX: Z12.31 Encounter for screening mammogram for malignant neoplasm of breast (principal)
CPT/HCPCS: 77067